=== PATIENT | male | born 1965 | race Caucasian/White ===

== ENCOUNTER 2025-01-07 20:47 | Emergency (ER) | payer MEDICAID, SELFPAY ==
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
[2025-01-07 21:17] VITALS: BP 174/84; PULSE 101; RESP 17; TEMP 36.7; O2SAT 97
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
[2025-01-07] MEDS: DIPHTH,PERTUSS(ACELL),TET VAC 0.5 ML SYR- ADULT IMi (22:26)
== END 2025-01-07 22:41 | disposition home or self-care (01) ==
PROVIDERS: Emergency Provider Emergency Medicine
DX: S16.1XXA Strain of muscle, fascia and tendon at neck level, initial encounter (principal); S80.11XA Contusion of right lower leg, initial encounter; R07.9 Chest pain, unspecified; V23.49XA Other motorcycle driver injured in collision with car, pick-up truck or van in traffic accident, initial encounter; Z23 Encounter for immunization
CPT/HCPCS: 70450; 71045; 72125; 73562; 90471; 90715; 99284

== ENCOUNTER 2025-01-11 09:47 | Emergency (ER) | payer MEDICAID, SELFPAY ==
[2025-01-11 09:59] VITALS: BP 175/106; PULSE 91; RESP 22; TEMP 37; O2SAT 98; BMI 28.0
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
[2025-01-11 11:40] VITALS: BP 165/99; PULSE 74; RESP 18; TEMP 36.6; O2SAT 96
== END 2025-01-11 11:54 | disposition home or self-care (01) ==
PROVIDERS: Emergency Provider Emergency Medicine
DX: S06.0X0A Concussion without loss of consciousness, initial encounter (principal); M54.2 Cervicalgia; R10.2 Pelvic and perineal pain; V89.2XXA Person injured in unspecified motor-vehicle accident, traffic, initial encounter
CPT/HCPCS: 70450; 72125; 72170; 99284